=== PATIENT | female | born 1960 | race Caucasian/White ===

== ENCOUNTER 2019-05-14 19:12 | Emergency (ER) | payer OTHER ==
--- NOTE | 2019-05-14 19:31 | ED Physician Documentation ---
Wrist Injury - HISTORIAN Historian: patient - HPI Chief Complaint: Wrist Injury Additional Information: Patient is a 58-year-old female who presents to the ER s/p fall. She states that she tripped at work after clocking out- when she fell she landed on ou tstretched hand of the left- c/o left wrist pain- norma wrapped. Denies any syncope or head injury. Patient not requesting anything for pain at this time. Onset: just prior to arrival Where: work Severity: mild Duration: lasting Context: fall Location of Injury: L wrist Modifying Factors: pain on movement - ROS CONST: no problems GI/: denies: nausea, vomiting NEURO: none CVS/RESP: none EYES/ENT: none MS/SKIN/LYMPH: none - PAST HX Past History: Rt handed, diabetes Type 2, other (HTN, HLD) Immunizations: UTD Allergies/Adverse Reactions: Allergies Allergy/AdvReac Type Severity Reaction Status Date / Time Penicillins Allergy Verified 05/14/19 19:30 Home Medications: Ambulatory Orders Medication Instructions Recorded Lisinopril 05/14/19 Meloxicam 05/14/19 Pravastatin Sodium 05/14/19 metFORMIN HCl [Glucophage] 1,000 mg .ROUTE BID 05/14/19 - SOCIAL HX Smoking History: greater than 1 pack/day Alcohol Use: none Drug Use: none - FAMILY HX Family History: none - REVIEWED ASSESSMENTS Nursing Assessment Reviewed: Yes Vitals Reviewed: Yes Wrist Physical Exam - Physical Exam General Appearance: no acute distress, alert Hand: nml inspection, non-tender Wrist: limited ROM, soft tissue tenderness Neuro: sensation nml, motor nml Vascular: no vascular compromise Tendon: tendon function nml Forearm/Elbow/Arm: uninjured above wrist Skin: warm/dry, normal color Head/ENT: nml inspection Neck/Back: nml inspection Resp/CVS: rhonchi Procedures Hand-Made Type: step splint Splint: sugar-tong (left arm) Pre-Proc Neuro Vasc Exam: normal Post-Proc Neuro Vasc Exam: normal Progress: Patient tolerated well Progress - Progress Progress: 20:20 Splint applied- neurovasculars intact- sling applied- patient appears comfortable- will send home 2 Tramadol 50mg if needed until she can fill the script in the morning. She will alternate Tylenol and Ibuprofen as needed. ED Results Lab/Radiology - Radiology Radiology Impressions: 3 views Left wrist Clinical history: Left wrist pain Findings: \There is a comminuted transverse impacted fracture of the distal radius. Overlying cast limits bony detail. There is minimal apex dorsal angulation. There is an ulnar styloid fracture as well. - Orders Orders: ED Orders Category Date Time Status WRIST 3 VIEWS OR MORE [RAD] Stat Exams 05/14/19 Ordered Discharge Clincal Impression: Fracture of radius, distal, closed, Fracture of ulnar styloid Referrals: Primary Doctor,No [Primary Care Provider] - 2 Days Additional Instructions: Wear Splint until follow up with Orthopedics Wear sling to support the arm Ice, elevate, and rest the wrist Follow up with Orthopedics this upcoming week 1. Dr. Howe here at [facility] [phone] (referral sent) 2. [facility] ([facility]) [phone] 3. [facility] [phone] Call and schedule appointment- take disc with you May alternate Tylenol and Ibuprofen as needed for pain Use Tramadol 50mg by mouth every 4-6 hours as needed for breakthrough pain Condition: Good Disposition: 01 HOME, SELF-CARE Decision to Admit: NO Decision Time: 20:28
[2019-05-14] MEDS ORDERED: traMADol HCL 50 MG TABLET PO ONE (20:21)
[2019-05-14 20:38] VITALS: BP 133/63
--- NOTE | 2019-05-15 06:21 | Diagnostic Imaging Report ---
TRELL JONES- ED [facility] [address] [facility].[address] [address] Report Submission Date: May 14, 2019 8:12:06 PM CDT Patient Study Name: TRELL VITALE Date: May 14, 2019 7:33:50 PM CDT Modality Type: DX Gender: F Description: WRIST 3 VIEWS : 64 Institution: [facility] Physician: TRELL JONES- CLARITA 3 views Left wrist Clinical history: Left wrist pain Findings: There is a comminuted transverse impacted fracture of the distal radius. Overlying cast limits bony detail. There is minimal apex dorsal angulation. There is an ulnar styloid fracture as well. Electronically signed on May 14, 2019 8:12:06 PM CDT by: Peterson HAYNES
== END 2019-05-14 20:36 | disposition home or self-care (01) ==
LOC: ED 19:12
DX: S52.512A Displaced fracture of left radial styloid process, initial encounter for closed fracture (principal); X50.1XXA Overexertion from prolonged static or awkward postures, initial encounter; Y99.8 Other external cause status
CPT/HCPCS: 29125; 73110; 99282; 99283